=== PATIENT | male | born 1965 | race Caucasian/White ===

== ENCOUNTER 2016-08-01 18:02 | Emergency (ER) ==
[2016-08-01 18:13] VITALS: BP 138/93; TEMP 98.3; BMI 25.7
[2016-08-01] MEDS ORDERED: NAPROSYN PO STA (18:15)
--- NOTE | 2016-08-01 18:16 | ED.PDOC ---
General ED Provider: Dr. DORIS SCHULTE JR Chief Complaint: Tooth Problem Stated Complaint: Pain rt upper jaw. Teeth carious. Ibuprofen 6 hours ago x 2 tabs (OTC). Has used Listerine. not helping. End ]2 days 98.3 115 20 97% 138/93 10/10 patient is moderately uncooperative crying from pain able to allow exam gives minimal history whines and occasionaly yelps seven years since he saw a dentist(is here with a preacher- is from [place] and is homeless- originally from this area staying at [facility]) Time Seen by Physician: 18:15 Mode of Arrival: Walk-In Information Source: Patient Exam Limitations: No limitations Nursing and Triage Documentation Reviewed and Agree: No Review of Systems - Review Of Systems Constitutional: Reports: No symptoms Eyes: Reports: No symptoms Ears, Nose, Mouth, Throat: Reports: Mouth pain (right buccal maxillary pain and tenderness 2mm raised site at upper canine) Respiratory: Reports: No symptoms Cardiac: Reports: No symptoms GI: Reports: No symptoms : Reports: No symptoms Musculoskeletal: Reports: No symptoms Skin: Reports: No symptoms Neurological: Reports: No symptoms Endocrine: Reports: No symptoms Hematologic/Lymphatic: Reports: No symptoms All Other Systems: Other Past Medical History - Past Medical History Previously Healthy: Yes Endocrine: Reports: None Cardiovascular: Reports: None Respiratory: Reports: None Hematological: Reports: None Gastrointestinal: Reports: None Genitourinary: Reports: None Neuro/Psych: Reports: None, Other (actions typical of MR but able to speak clearly and in full sentences at times, no evidence focal or delerious aspect except when complaining of dental pain) Musculoskeletal: Reports: None Cancer: Reports: None - Surgical History General Surgical History: Reports: Unknown - Family History Family History: Reports: Unknown - Social History Smoking Status: Former smoker Hx Substance Use: No Alcohol Screening: None Physical Exam - Physical Exam Appearance: Ill-appearing, Thin Pain Distress: Moderate Eyes: BIANCA, EOMI, Conjunctiva clear ENT: Ears normal, Nose normal, Erythema Neck: Supple Respiratory: Airway patent, Breath sounds clear, Breath sounds equal, Respirations nonlabored Cardiovascular: RRR, Pulses normal, No rub, No murmur GI/: Soft, Nontender, No masses, Bowel sounds normal, No Organomegaly Musculoskeletal: Normal strength, ROM intact, No edema, No calf tenderness Skin: Warm, Dry, Normal color Neurological: Sensation intact, Motor intact, Reflexes intact, Cranial nerves intact, Alert, Oriented Psychiatric: Affect appropriate, Mood appropriate Critical Care Note - Critical Care Note Total Time (mins): 0 Course - Course Vital Signs: Temp Pulse Resp BP Pulse Ox 08/01/16 18:03 98.3 F 115 H 20 138/93 H 97 Departure - Departure Time of Disposition: 18:46 Disposition: HOME SELF-CARE Discharge Problem: Toothache Instructions: Dental Abscess (ED) Condition: Fair Pt referred to PMD for follow-up: Yes Additional Instructions: clindamycin for infection Naprosyn for pain [place] for pain not controlled follow up with dentist as soon as possible Prescriptions: Hydrocodone Bit/Acetaminophen [[place] 5-325] 1 - 2 tab PO Q6HR PRN #12 tablet PRN Reason: pain Naproxen [Naprosyn] 500 mg PO Q12HR PRN #30 tablet PRN Reason: PAIN Clindamycin HCl 300 mg PO QID #40 capsule Allergies/Adverse Reactions: Allergies No Known Allergies Allergy (Unverified 08/01/16 18:10) Home Medications: Ambulatory Orders Clindamycin HCl 300 mg PO QID #40 capsule 08/01/16 Hydrocodone Bit/Acetaminophen [[place] 5-325] 1 - 2 tab PO Q6HR PRN #12 tablet Naproxen [Naprosyn] 500 mg PO Q12HR PRN #30 tablet 08/01/16
== END 2016-08-01 18:53 | disposition home or self-care (01) ==
LOC: ED 18:02
DX: K04.7 Periapical abscess without sinus (principal); K02.7 Dental root caries
CPT/HCPCS: 99282

== ENCOUNTER 2016-08-04 15:21 | Emergency (ER) ==
[2016-08-04 15:22] VITALS: BMI 25.7
[2016-08-04 15:32] VITALS: BP 133/87; TEMP 97.7
[2016-08-04] MEDS ORDERED: LIDOCAINE 1 % AMP 5 ML (SUTURES) SUBCUT STA (15:52)
[2016-08-04] MEDS ORDERED: LIDOCAINE 1 % AMP 5 ML (SUTURES) ONE (15:53)
[2016-08-04] MEDS ORDERED: ROCEPHIN IM STA (15:57)
[2016-08-04] MEDS ORDERED: LIDOCAINE 1 % AMP 5 ML (SUTURES) IM STA (15:57)
--- NOTE | 2016-08-04 16:01 | ED.PDOC ---
General ED Provider: Dr. CYNDEE RUBALCAVA Chief Complaint: Tooth Problem Stated Complaint: dental pain Time Seen by Physician: 15:23 Mode of Arrival: Walk-In Information Source: Patient Exam Limitations: No limitations Nursing and Triage Documentation Reviewed and Agree: Yes EENT Complaint Exam - Dental/Oral Complaint/Exam Mechanism of Injury: No known trauma Onset/Duration: 1 week Symptoms Are: Still present Timing: Constant Initial Severity: Severe Current Severity: Severe Character: Reports: Throbbing Aggravating: Reports: Cold, Chewing Alleviating: Reports: None Associated Signs and Symptoms: Denies: Swelling, Discharge, Fever, Foul odor, Foul taste in mouth Related History: Reports: Similar episode Cardiac Risk Factors: Reports: None Dental/Oral Surgical History: Reports: None Tooth Findings: Present: Gross decay, Gross caries, Dental fracture Cervical Lymphadenopathy Present: No Facial Swelling Present: No Bleeding Present: No Oropharynx Findings: Absent: Clots, Active bleeding Septal Hematoma: No Foreign Body Present: No Dysphagia Present: No Drooling Present: No Asymmetrical Tonsillar Swelling Present: No Uvula Midline: Yes Kimberly-tonsillar Fluctuence: No Trismus Present: No Palatal Petechiae Present: No Scarlatinaform Rash Present: No Teeth Picture: 1 - decay Differential Diagnoses: Dental Caries, Fractured Tooth, Trauma Review of Systems - Review Of Systems Constitutional: Reports: No symptoms Eyes: Reports: No symptoms Ears, Nose, Mouth, Throat: Reports: No symptoms Respiratory: Reports: No symptoms Cardiac: Reports: No symptoms GI: Reports: No symptoms : Reports: No symptoms Musculoskeletal: Reports: No symptoms Skin: Reports: No symptoms Neurological: Reports: No symptoms Endocrine: Reports: No symptoms Hematologic/Lymphatic: Reports: No symptoms All Other Systems: Reviewed and Negative Past Medical History - Past Medical History Previously Healthy: Yes Endocrine: Reports: None Cardiovascular: Reports: None Respiratory: Reports: None Hematological: Reports: None Gastrointestinal: Reports: None Genitourinary: Reports: None Neuro/Psych: Reports: None, Other (actions typical of MR but able to speak clearly and in full sentences at times, no evidence focal or delerious aspect except when complaining of dental pain) Musculoskeletal: Reports: None Cancer: Reports: None - Surgical History General Surgical History: Reports: Unknown - Family History Family History: Reports: Unknown - Social History Smoking Status: Former smoker Hx Substance Use: No Alcohol Screening: None Physical Exam - Physical Exam Appearance: Well-appearing, No pain distress, Well-nourished Eyes: BIANCA, EOMI, Conjunctiva clear ENT: Ears normal, Nose normal, Oropharynx normal Respiratory: Airway patent, Breath sounds clear, Breath sounds equal, Respirations nonlabored Cardiovascular: RRR, Pulses normal, No rub, No murmur GI/: Soft, Nontender, No masses, Bowel sounds normal, No Organomegaly Musculoskeletal: Normal strength, ROM intact, No edema, No calf tenderness Skin: Warm, Dry, Normal color Neurological: Sensation intact, Motor intact, Reflexes intact, Cranial nerves intact, Alert, Oriented Psychiatric: Affect appropriate, Mood appropriate Critical Care Note - Critical Care Note Total Time (mins): 0 Course - Course Orders, Labs, Meds: Orders Category Date Time Status Ceftriaxone Sodium [Rocephin] MEDS 08/04/16 15:57 Stat 1 gm IM ONCE STA Lidocaine HCl/Pf [Lidocaine 1 % Amp 5 ml (Sutures)] MEDS 08/04/16 15:57 Stat 2.1 ml IM ONCE STA Lidocaine HCl/Pf [Lidocaine 1 % Amp 5 ml (Sutures)] MEDS 08/04/16 15:53 Discontinued 5 ml .ROUTE .STK-MED ONE Lidocaine HCl/Pf [Lidocaine 1 % Amp 5 ml (Sutures)] MEDS 08/04/16 15:52 Stat 5 ml SUBCUT ONCE STA Medications Discontinued Medications Generic Name Dose Route Start Last Admin Trade Name [place]rett PRN Reason Stop Dose Admin Ceftriaxone Sodium 1 gm 08/04/16 15:57 Rocephin IM 08/04/16 15:58 ONCE STA Lidocaine HCl 5 ml 08/04/16 15:52 Lidocaine 1 % Amp 5 Ml (Sutures) SUBCUT 08/04/16 15:53 ONCE STA Lidocaine HCl 2.1 ml 08/04/16 15:57 Lidocaine 1 % Amp 5 Ml (Sutures) IM 08/04/16 15:58 ONCE STA Vital Signs: Temp Pulse Resp BP Pulse Ox 08/04/16 15:22 97.7 F 130 H 20 133/87 95 Departure - Departure Time of Disposition: 16:00 Disposition: HOME SELF-CARE Discharge Problem: Toothache Instructions: Toothache (ED) Condition: Good Pt referred to PMD for follow-up: No Additional Instructions: Please call your Family Physician as soon as possible to schedule a follow-up appointment. Prescriptions: Hydrocodone/Acetaminophen [[place] 10-325 Tablet] 1 each PO Q8HR #12 tablet Allergies/Adverse Reactions: Allergies No Known Allergies Allergy (Verified 08/04/16 15:33) Home Medications: Ambulatory Orders Clindamycin HCl 300 mg PO QID #40 capsule 08/01/16 Naproxen [Naprosyn] 500 mg PO Q12HR PRN #30 tablet 08/01/16 Hydrocodone/Acetaminophen [[place] 10-325 Tablet] 1 each PO Q8HR #12 tablet
== END 2016-08-04 16:21 | disposition home or self-care (01) ==
LOC: ED 15:21
DX: K08.89 Other specified disorders of teeth and supporting structures (principal); K02.7 Dental root caries; S02.5XXA Fracture of tooth (traumatic), initial encounter for closed fracture
CPT/HCPCS: 96372; 99282

== ENCOUNTER 2016-09-11 21:14 | Outpatient (CLI) ==
[2016-09-12 00:57] VITALS: BMI 21.9
== END 2016-09-11 21:15 | disposition home or self-care (01) ==
LOC: AMBL 21:14
PROVIDERS: ATTEND Emergency Medicine
DX: R41.82 Altered mental status, unspecified (principal)

== ENCOUNTER 2016-09-11 21:33 | Inpatient (IN) ==
[2016-09-11 21:58] LABS: BASOPHILS % (AUTO) 0.7 % (0.0-3.0); EOSINOPHILS # (AUTO) 0.3 K/ul (0.0-0.7); HEMATOCRIT 40.2 % (42.0-52.0); HEMOGLOBIN 14.2 g/dl (14.0-18.0); IMMATURE GRANULOCYTE % (AUTO) 0.2 % (0.0-5.0); LYMPHOCYTES % (AUTO) 47.5 (10.0-50.0); MEAN CORPUSCULAR HEMOGLOBIN 32.3 pg (27.0-31.0); MEAN CORPUSCULAR HGB CONC 35.3 (31.8-35.4); MEAN CORPUSCULAR VOLUME 91.4 fl (80.0-94.0); MONOCYTES # (AUTO) 0.3 K/uL (0.4-2.0); MONOCYTES % (AUTO) 6.5 (0-10); NEUTROPHILS # (AUTO) 1.6 K/ul (2.0-6.9); NEUTROPHILS % (AUTO) 39.1; PLATELET COUNT 87 10^3/uL (140-440); WHITE BLOOD COUNT 4.17 K/ul (4.2-10.2)
[2016-09-11 22:17] LABS: ADD URINE MICROSCOPIC NO; BILIRUBIN,URINE Negative (NEGATIVE); KETONES,URINE Negative (NEGATIVE); LEUKOCYTE ESTERASE ,URINE Negative (NEGATIVE); NITRITE,URINE Negative (NEGATIVE); PROTEIN,URINE Negative (NEGATIVE); URINE, BLOOD Negative (NEGATIVE)
[2016-09-11 22:25] LABS: COCAIN SCREEN,URINE NEGATIVE (NEGATIVE)
[2016-09-11 22:35] LABS: ACETAMINOPHEN < 3 ug/ml (10-30); ALANINE AMINOTRANSFERASE 41 U/L (12-78); ALBUMIN/GLOBULIN RATIO 1.21; ALKALINE PHOSPHATASE 56 U/L (50-136); ANION GAP 15.9; ASPARTATE AMINO TRANSFERASE 80 U/L (15-37); BILIRUBIN,TOTAL 0.27 mg/dL (0.00-1.20); BLOOD UREA NITROGEN 7 mg/dL (7-18); BUN/CREATININE RATIO 8.04; CALCIUM 9.3 mg/dL (8.2-10.2); CARBON DIOXIDE 23 mmol/L (21-32); CHLORIDE 110 mmol/L (98-107); CREATININE 0.87 mg/dL (0.60-1.10); GLUCOSE 98 mg/dL (70-100); POTASSIUM 3.9 mmol/L (3.5-5.1); SALICYLATE < 5.0 mg/dL (2.8-20.0); SODIUM 145 mmol/L (136-145); TOTAL PROTEIN 7.3 g/dL (6.4-8.2)
--- NOTE | 2016-09-11 23:09 | ED.PDOC ---
General ED Provider: Dr. YARELY PATEL Chief Complaint: Behavioral Complaint Stated Complaint: Patient is brought by the EMT, as he was not behaving right, and talking that does not make sence. Time Seen by Physician: 23:05 Mode of Arrival: Wheelchair Information Source: Patient, EMT Nursing and Triage Documentation Reviewed and Agree: Yes Psychological Complaint Exam - Psychiatric Complaint/Exam Patient Complains Of: Present: Other (hallucinations, alcohol) Symptoms Are: Still present Timing: Constant Episodes Lasting: Minutes Initial Severity: Severe Current Severity: Severe Character: Present: Manic, Anxious, Angry, Frustrated Aggravating: Reports: Alcohol use Associated Signs And Symptoms: Reports: Hallucinating, Paranoid behavior. Denies: Hostile, Confused, Sleep disturbance, Appetite change Related History: Reports: Drug ingestion (etoh) Completed Suicide Risk Factors: None Patient Accompanied By: Police, Friend, Mental Health Worker Patient In Custody Of Police: No Social Withdrawal Present: Yes Social Isolation Present: Yes Prior Suicide Attempt: No Injury From Prior Suicide Attempt: No Related Surgical History: Reports: None Patient Uncooperative For Exam: No Mood: Present: Angry, Paranoid, Hallucinating, Manic, Anxious Appearance: Present: Clean Thought Process: Present: Illogical, Flight of ideas Insight: Present: Poor Memory: Impaired Judgement: Impaired Danger To Others: Yes Patient Medically Stable For: Psych evaluation Differential Diagnoses: ETOH Intoxication, Schizophrenia, Other (hallucination) Review of Systems - Review Of Systems Constitutional: Reports: No symptoms Eyes: Reports: No symptoms Ears, Nose, Mouth, Throat: Reports: No symptoms Respiratory: Reports: No symptoms Cardiac: Reports: No symptoms GI: Reports: No symptoms : Reports: No symptoms Musculoskeletal: Reports: No symptoms Skin: Reports: No symptoms Neurological: Reports: Emotional problems Endocrine: Reports: No symptoms Hematologic/Lymphatic: Reports: No symptoms All Other Systems: Reviewed and Negative Past Medical History - Past Medical History Previously Healthy: Yes Endocrine: Reports: None Cardiovascular: Reports: None Respiratory: Reports: None Hematological: Reports: None Gastrointestinal: Reports: None Genitourinary: Reports: None Neuro/Psych: Reports: None, Other (actions typical of MR but able to speak clearly and in full sentences at times, no evidence focal or delerious aspect except when complaining of dental pain) Musculoskeletal: Reports: None Cancer: Reports: None - Surgical History General Surgical History: Reports: Unknown - Family History Family History: Reports: Unknown - Social History Smoking Status: Current every day smoker, Light tobacco smoker Smoking Cessation Counseling Time: > 3 min - 10 min Hx Substance Use: Yes (ALCOHOL) Alcohol Screening: Occasionally - Immunizations Tetanus Shot up to Date: (UNKNOWN) Physical Exam - Physical Exam Appearance: Ill-appearing, Thin Ill-appearing: Moderate Eyes: BIANCA, EOMI, Conjunctiva clear ENT: Ears normal, Nose normal, Oropharynx normal Respiratory: Airway patent, Breath sounds clear, Breath sounds equal, Respirations nonlabored Cardiovascular: RRR, Pulses normal, No rub, No murmur GI/: Soft, Nontender, No masses, Bowel sounds normal, No Organomegaly Musculoskeletal: Normal strength, ROM intact, No edema, No calf tenderness Skin: Warm, Dry, Normal color Neurological: Alert, Disoriented Psychiatric: Anxious Critical Care Note - Critical Care Note Total Time (mins): 0 Course - Course Hematology/Chemistry: 09/11/16 21:50 09/11/16 21:50 Orders, Labs, Meds: Lab Review 09/11/16 09/11/16 21:50 22:05 WBC 4.17 L RBC 4.40 L Hgb 14.2 Hct 40.2 L MCV 91.4 MCH 32.3 H MCHC 35.3 RDW Coeff of Sophie 14.2 Plt Count 87 L Immature Gran % (Auto) 0.2 Neut % (Auto) 39.1 Lymph % (Auto) 47.5 [place] % (Auto) 6.5 Eos % (Auto) 6.0 Baso % (Auto) 0.7 Immature Gran # (Auto) 0.0 Neut # 1.6 L Lymph # 2.0 [place] # 0.3 L Eos # 0.3 Baso # 0.0 Sodium 145 Potassium 3.9 Chloride 110 H Carbon Dioxide 23 Anion Gap 15.9 BUN 7 Creatinine 0.87 Estimated GFR (MDRD) 93.00 BUN/Creatinine Ratio 8.04 Glucose 98 Calcium 9.3 Total Bilirubin 0.27 AST 80 H ALT 41 Alkaline Phosphatase 56 Total Protein 7.3 Albumin 4.0 Globulin 3.3 Albumin/Globulin Ratio 1.21 TSH 0.667 Urine Color Yellow Urine Clarity Clear Urine pH 6.0 Ur Specific [place] 1.010 Urine Protein Negative Urine Glucose (UA) Negative Urine Ketones Negative Urine Blood Negative Urine Nitrite Negative Urine Bilirubin Negative Urine Urobilinogen 0.2 Ur Leukocyte Esterase Negative Salicylate Level mg/dL < 5.0 Urine Opiates Screen Negative Ur Oxycodone Screen Negative Urine Methadone Screen Negative Ur Propoxyphene Screen Negative Acetaminophen < 3 L Ur Barbiturates Screen Negative U Tricyclic Antidepress Negative Ur Phencyclidine Scrn Negative Ur Amphetamine Screen Negative U Methamphetamines Scrn Negative U Benzodiazepines Scrn Positive Urine Cocaine Screen Negative U Cannabinoids Screen Negative Plasma/Serum Alcohol 286.5 H Orders Category Date Time Status ACETAMINOPHEN Stat LAB 09/11/16 21:50 Completed BLOOD ALCOHOL Stat LAB 09/11/16 21:50 Completed CBC W/ AUTO DIFF Stat LAB 09/11/16 21:50 Completed COMPREHENSIVE METABOLIC PANEL Stat LAB 09/11/16 21:50 Completed DRUG SCREEN, URINE, RAPID Stat LAB 09/11/16 22:05 Completed SALICYLATE Stat LAB 09/11/16 21:50 Completed THYROID STIMULATING HORMONE Stat LAB 09/11/16 21:50 Completed URINALYSIS C & S IF INDICATED Stat LAB 09/11/16 22:05 Completed Vital Signs: Temp Pulse Resp BP Pulse Ox 09/11/16 21:35 98.1 F 102 H 24 124/93 H 96 Departure - Departure Time of Disposition: 23:18 Disposition: ADMITTED INPATIENT Discharge Problem: Alcoholic intoxication Instructions: Alcohol Intoxication (ED) Condition: Stable Pt referred to PMD for follow-up: No Allergies/Adverse Reactions: Allergies No Known Allergies Allergy (Verified 09/11/16 21:56) Home Medications: Ambulatory Orders 1 [Unobtainable] 09/11/16 Disposition Discussed With: Patient Discharge Problem: Alcoholic intoxication Qualifiers: Complication of substance-induced condition: with delirium Qualifier Code: ( F10.921) Alcohol use, unspecified with intoxication delirium
[2016-09-11] MEDS ORDERED: GEODON IM STA (23:11)
[2016-09-11] MEDS ORDERED: GEODON IM ONE (23:15)
[2016-09-11] MEDS: SODIUM CHLORIDE 1,000 ML IV SCH (23:42)
[2016-09-12 00:57] VITALS: BMI 21.9
[2016-09-12] MEDS ORDERED: SODIUM CHLORIDE 500 ML IV STA (04:27)
[2016-09-12 05:37] LABS: BASOPHILS % (AUTO) 0.9 % (0.0-3.0); EOSINOPHILS # (AUTO) 0.2 K/ul (0.0-0.7); EOSINOPHILS % (AUTO) 7.2 % (0.0-7.0); HEMATOCRIT 36.6 % (42.0-52.0); HEMOGLOBIN 12.6 g/dl (14.0-18.0); LYMPHOCYTES # (AUTO) 1.7 K/uL (0.60-3.4); MEAN CORPUSCULAR HEMOGLOBIN 32.2 pg (27.0-31.0); MEAN CORPUSCULAR HGB CONC 34.4 (31.8-35.4); MEAN CORPUSCULAR VOLUME 93.6 fl (80.0-94.0); MONOCYTES # (AUTO) 0.3 K/uL (0.4-2.0); MONOCYTES % (AUTO) 7.5 (0-10); NEUTROPHILS # (AUTO) 1.2 K/ul (2.0-6.9); NEUTROPHILS % (AUTO) 34.4; PLATELET COUNT 71 10^3/uL (140-440); RED BLOOD COUNT 3.91 10^6/ul (4.70-6.10); WHITE BLOOD COUNT 3.34 K/ul (4.2-10.2)
[2016-09-12 05:52] LABS: ALBUMIN 3.3 g/dL (3.4-5.0); ALBUMIN/GLOBULIN RATIO 1.18; ANION GAP 16.6; BILIRUBIN,TOTAL 0.23 mg/dL (0.00-1.20); BUN/CREATININE RATIO 10.66; CALCIUM 8.3 mg/dL (8.2-10.2); CREATININE 0.75 mg/dL (0.60-1.10); POTASSIUM 3.6 mmol/L (3.5-5.1); TOTAL PROTEIN 6.1 g/dL (6.4-8.2)
[2016-09-12] MEDS: SODIUM CHLORIDE 1,000 ML IV SCH ×2 (07:51→23:02)
--- NOTE | 2016-09-12 09:53 | PCM.PROG ---
Attending Provider: [facility] DATE OF SERVICE: 09/12/16 SUBJECTIVE: This 51 year old WHITE/ M was hospitalized 09/11/16. The patient is still sleeping, has received Geodon. The patient is calm and quiet. The patient had low systolic blood pressure of 80. The patient was given a 500 mg bolus and blood pressure was brought to 96 and is more than 100 now. REVIEW OF SYSTEMS: (The patient is sleeping) CONSTITUTIONAL: No fever, no chills. ENDOCRINE: No weight loss or weight gain. HEENT: No sinus drainage, no sore throat. CVS: No angina symptoms. No CHF symptoms. No palpitations. No atypical chest pain for CAD. No shortness of breath. RESPIRATORY: No cough, no hemoptysis. GI: No melena. No abdominal pain. No nausea, no vomiting. : No hematuria. No polyuria. SKIN: No rash. No wounds. MUSCULOSKELETAL: No pain. MOTION GRAPHICS DESIGNER: No blackout, no dizziness. No headache. No double vision. PSYCHIATRIC: Not anxious; no depression. No suicidal thoughts. No homicidal thoughts. PHYSICAL EXAMINATION: GENERAL: Lying in bed in no distress. The patient smells of alcohol. He is quiet, calm and non argumentative. VITAL SIGNS: Temperature 96.1 F, Pulse 73, Respiratory Rate 16, BP 118/68, Pulse Ox 98% HEENT: Normocephalic, atraumatic. Mucosa is dry, pallor positive. NECK: No JVP, no carotid bruit. No lymphadenopathy. CARDIAC: S1, S2, no S3. No murmur, gallop or regurgitation. LUNGS: Clear to auscultation. ABDOMEN: Soft, non-tender. Bowel sounds active. No rigidity, guarding or CVA tenderness. EXTREMITIES: No clubbing, cyanosis or edema. NEUROLOGIC: Sleeping quietly. LYMPHATIC: No palpable lymph nodes SKIN: Not dry. Intact. MUSCULOSKELETAL: No joint swelling. LAB REVIEW: 09/12/16 05:00 09/12/16 05:00 09/12/16 05:00: WBC 3.34 L, RBC 3.91 L, Hgb 12.6 L, Hct 36.6 L, MCV 93.6, MCH 32.2 H, MCHC 34.4, RDW Coeff of Sophie 14.6, Plt Count 71 L, Immature Gran % (Auto ) 0.0, Neut % (Auto) 34.4, Lymph % (Auto) 50.0, [place] % (Auto) 7.5, Eos % (Auto) 7.2 H, Baso % (Auto) 0.9, Immature Gran # (Auto) 0.0, Neut # 1.2 L, Lymph # 1.7 , [place] # 0.3 L, Eos # 0.2, Baso # 0.0, Sodium 147 H, Potassium 3.6, Chloride 114 H, Carbon Dioxide 20 L, Anion Gap 16.6, BUN 8, Creatinine 0.75, Estimated GFR (MDRD) 111.00, BUN/Creatinine Ratio 10.66, Glucose 67 L, Calcium 8.3, Total Bilirubin 0.23, AST 62 H, ALT 34, Alkaline Phosphatase 46 L, Total Protein 6.1 L , Albumin 3.3 L, Globulin 2.8, Albumin/Globulin Ratio 1.18 ASSESSMENT: 1. Alcohol intoxication 2. Hallucinations 3. History of depression PLAN: 1. Blood alcohol level by noon 2. Mental health consult 3. Continue neuro checks Plan and coordination of the patient's care discussed in the presence of Attorney Recruiter and nurse. CONDITION: Stable SCRIBED BY: TALYA RUIZ, Flat Knitter scribed while in presence of service performed by Dr. YARELY PATEL[facility] on 09/12/16 (08)
[2016-09-12] MEDS: TYLENOL PO PRN (13:56)
[2016-09-12] MEDS ORDERED: ZOFRAN 4 MG/2 ML IVP STA (22:09)
[2016-09-13] MEDS: ATIVAN IVP PRN ×3 (00:47→16:33)
[2016-09-13 04:25] LABS: BASOPHILS % (AUTO) 0.5 % (0.0-3.0); EOSINOPHILS # (AUTO) 0.2 K/ul (0.0-0.7); EOSINOPHILS % (AUTO) 4.7 % (0.0-7.0); HEMOGLOBIN 11.4 g/dl (14.0-18.0); IMMATURE GRANULOCYTE % (AUTO) 0.3 % (0.0-5.0); LYMPHOCYTES # (AUTO) 1.4 K/uL (0.60-3.4); LYMPHOCYTES % (AUTO) 37.9 (10.0-50.0); MEAN CORPUSCULAR HGB CONC 34.5 (31.8-35.4); MEAN CORPUSCULAR VOLUME 92.7 fl (80.0-94.0); MONOCYTES # (AUTO) 0.3 K/uL (0.4-2.0); MONOCYTES % (AUTO) 8.2 (0-10); NEUTROPHILS # (AUTO) 1.8 K/ul (2.0-6.9); NEUTROPHILS % (AUTO) 48.4; PLATELET COUNT 77 10^3/uL (140-440); RED BLOOD COUNT 3.56 10^6/ul (4.70-6.10)
[2016-09-13 04:54] LABS: ALBUMIN 3.1 g/dL (3.4-5.0); ALBUMIN/GLOBULIN RATIO 1.35; ANION GAP 15.1; BILIRUBIN,TOTAL 0.51 mg/dL (0.00-1.20); BUN/CREATININE RATIO 15.78; CALCIUM 8.4 mg/dL (8.2-10.2); CREATININE 0.76 mg/dL (0.60-1.10); POTASSIUM 4.1 mmol/L (3.5-5.1); TOTAL PROTEIN 5.4 g/dL (6.4-8.2)
[2016-09-13] MEDS: TYLENOL PO PRN (08:03)
[2016-09-13] MEDS: SODIUM CHLORIDE 1,000 ML IV SCH (16:33)
[2016-09-13] MEDS: LIBRIUM PO SCH (20:25)
[2016-09-13] MEDS ORDERED: ATIVAN IVP PRN (23:46)
[2016-09-14 04:40] LABS: BASOPHILS % (AUTO) 0.7 % (0.0-3.0); EOSINOPHILS # (AUTO) 0.2 K/ul (0.0-0.7); EOSINOPHILS % (AUTO) 3.5 % (0.0-7.0); HEMATOCRIT 37.1 % (42.0-52.0); HEMOGLOBIN 12.8 g/dl (14.0-18.0); IMMATURE GRANULOCYTE % (AUTO) 0.2 % (0.0-5.0); LYMPHOCYTES # (AUTO) 1.5 K/uL (0.60-3.4); LYMPHOCYTES % (AUTO) 33.4 (10.0-50.0); MEAN CORPUSCULAR HEMOGLOBIN 31.8 pg (27.0-31.0); MEAN CORPUSCULAR HGB CONC 34.5 (31.8-35.4); MEAN CORPUSCULAR VOLUME 92.3 fl (80.0-94.0); MONOCYTES # (AUTO) 0.4 K/uL (0.4-2.0); MONOCYTES % (AUTO) 8.3 (0-10); NEUTROPHILS # (AUTO) 2.3 K/ul (2.0-6.9); NEUTROPHILS % (AUTO) 53.9; PLATELET COUNT 114 10^3/uL (140-440); RED BLOOD COUNT 4.02 10^6/ul (4.70-6.10); WHITE BLOOD COUNT 4.34 K/ul (4.2-10.2)
[2016-09-14 05:03] LABS: ALBUMIN 3.6 g/dL (3.4-5.0); ALBUMIN/GLOBULIN RATIO 1.2; BILIRUBIN,TOTAL 0.48 mg/dL (0.00-1.20); BUN/CREATININE RATIO 9.3; CREATININE 0.86 mg/dL (0.60-1.10); TOTAL PROTEIN 6.6 g/dL (6.4-8.2)
[2016-09-14] MEDS: SODIUM CHLORIDE 1,000 ML IV SCH (07:26)
[2016-09-14] MEDS: LIBRIUM PO SCH ×2 (08:21→15:02)
[2016-09-14 11:13] VITALS: BP 120/85; TEMP 97.5
--- NOTE | 2016-10-17 09:23 | PN ---
DATE OF SERVICE: 09/12/16 SUBJECTIVE: The patient was admitted with alcohol intoxication. The patient has some nausea but eating fine. No vomiting. Doesn't have any eye contact. Still feels like there is something inside him trying to say something but no trying to hurt him and no intentions. REVIEW OF SYSTEMS: CONSTITUTIONAL: No fever, no chills. HEENT: Normal. ENDOCRINE: No weight gain, no weight loss. CVS: No angina symptoms. No CHF symptoms. No palpitations. No atypical chest pain for CAD. No shortness of breath. No PND, no orthopnea. RESPIRATORY: No cough, no hemoptysis. GI: No nausea, no vomiting. No abdominal pain. : No hematuria. No polyuria. MUSCULOSKELETAL:. No joint swelling. PSYCHIATRIC: Not anxious. No depression. No suicidal thoughts. No homicidal thoughts. SKIN: Intact. No rash. PHYSICAL EXAMINATION: V/S: Blood pressure 126/85, respiratory rate 18, heart rate 62 and temperature 97.9 with saturation 97%. HEENT: Normocephalic, atraumatic. Mucosa dry. Pallor positive. No icterus. NECK: Supple. No JVD, no carotid bruit. No lymphadenopathy. LUNGS: Decreased and basilar crackles. No rales or rhonchi. HEART: S1, S2 normal. No S3. No murmur, gallop or regurgitation. ABDOMEN: Soft, nontender. Bowel sounds active. No rigidity. No rebound or guarding. No CVA tenderness. EXTREMITIES: No clubbing, cyanosis or pedal edema. MUSCULOSKELETAL: No joint swelling. NEUROLOGIC: Awake, alert, oriented times three. No focal deficit. No confabulation. No tremors in the hands. LYMPHATIC: No lymph nodes palpable. SKIN: Intact. Dry LABS: WBC 3.80, hgb 11.4, hct 33.0, plt count 77, sodium 142, potassium 4.1, chloride 109, bicarb 22, BUN 12, creatinine 0.76, glucose 80. ASSESSMENT: 1. ETOH intoxication, getting better 2. Hallucinations 3. Depression 4. Anxiety 5. Thrombocytopenia from the alcohol 6. Anemia PLAN: 1. Continue the oxygen 2 liter nasal cannula 2. Normal saline with MVI 3. Telemetry 4. Ativan PRN 5. Daily I&O's 6. Out of bed to chair activity as tolerated TIME SPENT: More than 35 minutes MTDD
--- NOTE | 2016-10-17 09:33 | DS ---
DATE OF SERVICE: 09/14/16 FINAL DIAGNOSIS: 1. Alcohol intoxication 2. Status post hallucinations with alcohol withdrawals 3. Depression 4. Anxiety 5. Anemia 6. Thrombocytopenia DISCHARGE INSTRUCTIONS: Discharge the patient home. Follow up with the Mental Health Counselor as instructed. Followup at the [facility] September 21. MEDICATIONS AT DISCHARGE/NEW PRESCRIPTIONS: Librium 25mg twice daily DIET INSTRUCTIONS: Regular ACTIVITY: Do not drink alcohol Get plenty of rest. Advised [employer] groups and refused to go. SMOKING: Current everyday smoker, Counseling for smoking done. DISEASE SPECIFIC EDUCATION: Alcohol Risk of liver failure, liver cirrhosis been discussed and verbalized understanding HOSPITAL COURSE: Gonzalez Portillo who was seen and evaluated in the emergency room as patient was brought by the EMT for inappropriate behavior and babbling and kept saying that "It is in me and I have to get out, It is in me and I have to get it out." He has been drinking. The patient is cooperative. The patient's step brother is with him. He was evaluated in the emergency room; alcohol level was 286, hemologically stable except the plt count of 87. After initially management in the ER the patient was admitted to the hospital for the IV hydration and the acute alcohol intoxication treatment. Ativan 2mg was given Q 4 hours PRN. Chlordiazepoxide was given 75mg PO three times a day, IV fluids at 75ml per hour , Tylenol and Zofran was given. Gradually the patient started feeling better, more awake and alert. Hgb was 12.6, 11.4 steady. BUN and creatinine was normal. Repeat alcohol levels were less than 10. The patient's hallucinations resided within two days then he was awake, alert and oriented. He did not have any complications. Appetite is good and eating better. At that time the patient been discharged home. Followup in the [facility] within 5-7 days. TIME SPENT: MORE THAN 55 MINUTES MTDD
== END 2016-09-14 15:30 | disposition home or self-care (01) | DRG 897 ==
LOC: ED 21:33 → MEDSURG B 23:21
PROVIDERS: ADMIT Emergency Medicine; ATTEND Emergency Medicine
DX: F10.239 Alcohol dependence with withdrawal, unspecified (principal); R44.3 Hallucinations, unspecified; F10.229 Alcohol dependence with intoxication, unspecified; Y90.8 Blood alcohol level of 240 mg/100 ml or more; F91.8 Other conduct disorders; F17.200 Nicotine dependence, unspecified, uncomplicated; F41.8 Other specified anxiety disorders; D64.9 Anemia, unspecified; D69.6 Thrombocytopenia, unspecified; I95.9 Hypotension, unspecified; Z71.6 Tobacco abuse counseling
CPT/HCPCS: 36415; 80053; 80306; 80307; 81001; 84443; 85025; 96375; 99285

== ENCOUNTER 2016-12-02 19:51 | Emergency (ER) ==
[2016-12-02 19:55] VITALS: BP 119/86; TEMP 98.2; BMI 25.7
--- NOTE | 2016-12-02 20:01 | ED.PDOC ---
General ED Provider: Dr. IGNACIA KING Chief Complaint: Ankle Pain/Injury Stated Complaint: Patient is a 51 year old male who comes to the Er with Right ankle pain after he fell early this morning. He states that he had ankle surgery approximately one year ago. Time Seen by Physician: 19:59 Mode of Arrival: Walk-In Information Source: Patient Exam Limitations: No limitations Nursing and Triage Documentation Reviewed and Agree: Yes Review of Systems - Review Of Systems Constitutional: Reports: No symptoms Eyes: Reports: No symptoms Ears, Nose, Mouth, Throat: Reports: No symptoms Respiratory: Reports: No symptoms Cardiac: Reports: No symptoms GI: Reports: No symptoms : Reports: No symptoms Musculoskeletal: Reports: Joint pain Skin: Reports: No symptoms Neurological: Reports: No symptoms Endocrine: Reports: No symptoms Hematologic/Lymphatic: Reports: No symptoms All Other Systems: Reviewed and Negative Past Medical History - Past Medical History Previously Healthy: Yes Endocrine: Reports: None Cardiovascular: Reports: None Respiratory: Reports: None Hematological: Reports: None Gastrointestinal: Reports: None Genitourinary: Reports: None Neuro/Psych: Reports: Other (actions typical of MR but able to speak clearly and in full sentences at times, no evidence focal or delerious aspect except when complaining of dental pain) Musculoskeletal: Reports: Arthritis, Other (nectotizing faciatis right ankle. ) Cancer: Reports: None - Surgical History General Surgical History: Reports: Orthopedic (Right Ankle surgery ), Unknown - Family History Family History: Reports: Unknown - Social History Smoking Status: Current every day smoker, Heavy tobacco smoker Hx Substance Use: No Alcohol Screening: Occasionally - Immunizations Tetanus Shot up to Date: Yes Physical Exam - Physical Exam Appearance: Ill-appearing Ill-appearing: Mild Pain Distress: Severe Neck: Supple Respiratory: Airway patent, Breath sounds clear, Breath sounds equal, Respirations nonlabored Cardiovascular: RRR, Pulses normal, No rub, No murmur Musculoskeletal: Limited ROM Skin: Warm, Dry Psychiatric: Anxious Interpretation - Radiology Interpretation Radiology Interpretation By: ED Physician Radiology Results: Negative Exam Interpreted: Other (ankle x ray ) Re-Evaluation - Re-Evaluation Time of Re-Evaluation: 20:55 Status: Improved Critical Care Note - Critical Care Note Total Time (mins): 0 Course - Course Orders, Labs, Meds: Orders Category Date Time Status Ketorolac Tromethamine [Toradol] MEDS 12/02/16 20:16 Discontinued 60 mg IM ONCE STA ANKLE, RIGHT MIN 3 VIEWS Stat RADS 12/02/16 19:58 Completed Medications Discontinued Medications Generic Name Dose Route Start Last Admin Trade Name [place] PRN Reason Stop Dose Admin Ketorolac Tromethamine 60 mg 12/02/16 20:16 12/02/16 20:21 Toradol IM 12/02/16 20:17 60 mg ONCE STA Administration Vital Signs: Temp Pulse Resp BP Pulse Ox 12/02/16 19:52 98.2 F 108 H 20 119/86 97 Departure - Departure Time of Disposition: 21:00 Disposition: HOME SELF-CARE Discharge Problem: Sprain of right ankle Qualifiers: Encounter type: initial encounter Involved ligament of ankle: other ligament Qualified Code(s): S93.491A - Sprain of other ligament of right ankle, initial encounter Instructions: Ankle Sprain (ED) Condition: Fair Pt referred to PMD for follow-up: Yes Additional Instructions: Take Motrin as needed for pain Follow up with PCP in 3 days. Prescriptions: Ibuprofen [Motrin] 600 mg PO Q6H PRN #30 tablet PRN Reason: Analgesia Allergies/Adverse Reactions: Allergies No Known Allergies Allergy (Verified 09/11/16 21:56) Home Medications: Ambulatory Orders Ibuprofen [Motrin] 600 mg PO Q6H PRN #30 tablet 12/02/16 Disposition Discussed With: Patient
[2016-12-02] MEDS ORDERED: TORADOL IM STA (20:16)
--- NOTE | 2016-12-02 20:19 | DI ---
EXAM: Right ankle three views HISTORY: Injury COMPARISON: None. FINDINGS: There are small plantar and retrocalcaneal spurs. Ankle mortise and talar dome are intact . Surrounding soft tissues are unremarkable. IMPRESSION: No acute findings. Plantar and retrocalcaneal spurs
== END 2016-12-02 20:51 | disposition home or self-care (01) ==
LOC: ED 19:51
DX: S93.491A Sprain of other ligament of right ankle, initial encounter (principal); W19.XXXA Unspecified fall, initial encounter; F17.210 Nicotine dependence, cigarettes, uncomplicated
CPT/HCPCS: 96372; 99282